=== PATIENT | male | born 1960 | race Caucasian/White ===

== ENCOUNTER → 2020-12-15 10:23 | Outpatient (CLI) | payer OTHER, SELFPAY | PROVIDERS: PCP Family Medicine; Visit Provider Nurse Practitioner | DX: Z20.822 Contact with and (suspected) exposure to COVID-19 (principal) | CPT/HCPCS: C9803; U0003; U0005 ==

== ENCOUNTER → 2021-01-23 09:03 | Outpatient (CLI) | payer OTHER, SELFPAY | PROVIDERS: Visit Provider Student in an Organized Health Care Education/Training Program | DX: Z01.818 Encounter for other preprocedural examination (principal); Z11.52 Encounter for screening for COVID-19 | CPT/HCPCS: C9803; U0003; U0005 ==

== ENCOUNTER → 2021-02-18 10:44 | Outpatient (CLI) | payer OTHER, SELFPAY | PROVIDERS: Visit Provider Family Medicine | DX: U07.1 COVID-19 (principal) | CPT/HCPCS: C9803; U0003; U0005 ==

== ENCOUNTER 2021-05-05 10:00 | Outpatient (RCR) | payer OTHER, SELFPAY | END 2021-05-05 10:05 | disposition home or self-care (01) | LOC: PT 10:00 | PROVIDERS: PCP Family Medicine; Visit Provider Student in an Organized Health Care Education/Training Program | DX: R60.0 Localized edema (principal); Z98.890 Other specified postprocedural states | CPT/HCPCS: 97110; 97140; 97162; 97760 ==

== ENCOUNTER 2022-10-02 10:32 | Observation (INO) | payer BC, SELFPAY ==
[2022-10-02] VITALS (14 sets, daily range): BP systolic 109–137; BP diastolic 61–80; PULSE 111–126; RESP 16–19; TEMP 36.7–37.7; O2SAT 96–99; BMI 39.4
--- NOTE | 2022-10-02 10:52 | CT_ITS ---
PROCEDURE INFORMATION: Exam: CT Abdomen And Pelvis Without Contrast Exam date and time: 10/02/2022 11:06 AM Age: 62 years old Clinical indication: Abdominal pain; Flank; Right; Additional info: Flank pain, recent untreated UTI, h/o renal cancer TECHNIQUE: Imaging protocol: Computed tomography of the abdomen and pelvis without contrast. Radiation optimization: All CT scans at this facility use at least one of these dose optimization techniques: automated exposure control; mA and/or kV adjustment per patient size (includes targeted exams where dose is matched to clinical indication); or iterative reconstruction. REPORTING DATA: Count of CT and Cardiac NM exams in prior 12 months: This patient has received 0 known CTs and 0 known cardiac nuclear medicine studies in the 12 months prior to the current study. COMPARISON: No relevant prior studies available. FINDINGS: Liver: Normal. No mass. Gallbladder and bile ducts: Normal. No calcified stones. No ductal dilation. Pancreas: Normal. No ductal dilation. Spleen: Normal. No splenomegaly. Adrenal glands: Normal. No mass. Kidneys and ureters: Previous left nephrectomy. Nonobstructing right renal calculus measures 8 mm. Right peripelvic cyst measures 3.3 x 3.1 cm. No hydronephrosis. Stomach and bowel: Unremarkable. No obstruction. No mucosal thickening. Appendix: No evidence of appendicitis. Intraperitoneal space: Unremarkable. No free air. No significant fluid collection. Vasculature: Unremarkable. No abdominal aortic aneurysm. Lymph nodes: Increased number of unenlarged lymph nodes within the right pelvis, and along the right iliac and retroperitoneal chains. Likely reactive. Urinary bladder: Bladder wall thickening suspected. Likely cystitis, clinical correlation recommended. Reproductive: Inflammatory changes adjacent to the bladder, extending inferiorly to the seminal vesicles and prostate gland. Bones/joints: Unremarkable. No acute fracture. Soft tissues: Unremarkable. IMPRESSION: 1. Inflammatory changes adjacent to the bladder, extending inferiorly to the seminal vesicles and prostate gland. Bladder wall thickening suspected. Likely cystitis, clinical correlation recommended. 2. Increased number of unenlarged lymph nodes within the right pelvis, and along the right iliac and retroperitoneal chains. Likely reactive. COMMENTS: Consistent with the [employer]'s Incidental Findings Committee white paper (J Am Rigo Radiol 2018): Any incidental renal lesion less than 1 cm or classified as too small to characterize, or any incidental cystic renal lesion characterized as simple-appearing, is likely benign. No follow-up imaging is recommended for these lesions per consensus recommendations based on imaging criteria.
--- NOTE | 2022-10-02 11:00 | PC.NURSE ---
bladder scan performed, 16 mL's noted in bladder. notified
[2022-10-02 11:09] LABS: Basophils # 0.1 K/mm3 (0-0.2); Basophils % 0.3 % (0.1-2.0); Eosinophils # 0.1 K/mm3 (0.0-0.4); Eosinophils % 0.6 % (0.1-12.0); Hematocrit 52.1 % (42.0-52.0); Hemoglobin 16.7 g/dL (14.1-18.0); Lymphocytes # 3.5 K/mm3 (0.7-4.5); Lymphocytes % 19.3 % (10-50); Mean Corpuscular Hemoglobin 30.7 pg (27.0-31.2); Mean Corpuscular Volume 95.8 fl (80-94); Mean Platelet Volume 7.9 fl (7.4-10.4); Monocytes # 1.6 K/mm3 (0.1-1.0); Neutrophils # 12.8 K/mm3 (1.8-7.8); Neutrophils % 70.7 % (37.0-80.0); Platelet Count 210 K/mm3 (142-424); Red Blood Count 5.44 M/mm3 (4.60-6.20); Red Cell Distribution Width 13.1 % (11.5-17.5); White Blood Count 18.1 K/mm3 (4.8-10.8)
[2022-10-02 11:16] LABS: MANUAL DIFFERENTIAL MANUAL DIFFERENTIAL (MANUAL DIFF)
[2022-10-02 11:26] LABS: Chloride 99 mmol/L (98-107); Sodium 136 mmol/L (136-145)
[2022-10-02 11:28] LABS: Blood Urea Nitrogen 14 mg/dl (9-20); Creatinine Clearance Estimated 69 mL/min (50-200); Estimated Glomerular Filt Rate 36 ml/min (>60); GFR (African American) 43 ML/MIN (>60)
[2022-10-02 11:29] LABS: Alanine Aminotransferase 28 U/L (12-78); Albumin/Globulin Ratio 1.1 (1.1-1.8); Alkaline Phosphatase 116 U/L (38-126); Aspartate Amino Transferase 30 U/L (17-59); Bilirubin,Total 1.1 mg/dl (0.2-1.3); Calcium 9.1 mg/dl (8.4-10.2); Carbon Dioxide 23 mmol/L (22.0-30.0); Globulin 3.5 g/dL (1.3-3.2); Glucose 119 mg/dl (74-100); Total Protein,Serum 7.5 g/dl (6.3-8.2)
--- NOTE | 2022-10-02 11:35 | ECG_ITS ---
APPROVED REPORT Exam: Resting ECG HR:117 bpm ECG Measurements Heart Rate 117 AXES MA 163 P 33 QRSd 102 QRS -1 QT 312 T 49 QTc 382 Conclusion SINUS TACHYCARDIA ABNORMAL RHYTHM ECG UNCONFIRMED REPORT Electronically signed by : Ta Moreno MD 10/02/2022 21:00:50
[2022-10-02 11:36] LABS: Microscopic, Urine URINE MICROSCOPIC (MICROSCOPIC)
--- NOTE | 2022-10-02 11:41 | HMH.EDGENADL ---
Discharge Plan Disposition Patient Disposition: Admitted Condition: Good Clinical Impressions Clinical Impression: Sepsis secondary to UTI, GENA (acute kidney injury) Discharge ED Provider: Ava Villeda General Adult HPI General Chief complaint: Urogenital-Male Stated complaint: unable to use the restroom, abd pain Time Seen by Provider: 10/02/22 10:38 Mode of Arrival: Ambulatory Source of Information: Patient Limitations: No Limitations Description of Symptoms (Recalled from ER Triage Doc. by RN): 52 yo M presents to ED with c/o trouble urinating. pt reports nov 2019 pt had kidney cancer and left kidney removed. pts reports diagnosed with kidney infection on tuesday, but was unsure of taking abx prescribed, cipro, due to effects it can have on kidneys. pt reports being able to pee, but feels like he is not emptying his bladder. History of Present Illness HPI narrative: This patient is a 52-year-old male with a history of kidney cancer status post left nephrectomy presenting to the emergency department for evaluation with concern for generalized weakness, fatigue, and trouble urinating. Of note, patient is currently on immunotherapy for his history of kidney cancer. He is followed at [facility]. Patient reports that he started feeling ill approximately 1 week ago. On Tuesday of last week, he was evaluated and diagnosed with a kidney infection. He was prescribed ciprofloxacin, which he states he took 3 doses of on last Tuesday and . His was reading online that it could cause headache and kidney issues, so they decided to stop administering ciprofloxacin. Patient gradually began to feel worse, and last night he had chills, nausea, fatigue, body aches, and headache. Given this, they gave him a dose of Cipro last night. Today, he reports that he has had a lot of trouble urinating. He states that he feels like he has to pee but feels like his bladder is not emptying. Given this, he came to the emergency department for evaluation. He denies any fevers, chest pain, shortness of breath, or other concerns. Related Data Allergies Allergy/AdvReac Type Severity Reaction Status Date / Time No Known Allergies Allergy Verified 10/02/22 11:36 [facility] Disclaimer: The information contained in this section may have been updated after the patient was seen, as this information can be updated by other users. Social History Smoking Status: Never smoker alcohol intake: never current occupational status: retired Travel in the last 8 weeks: None ROS Obtained: Yes All systems reviewed & no additional complaints except as documented Physical Exam General General appearance: alert and in no apparent distress Comment: Tired appearing Head Head exam: atraumatic, normocephalic and other (Malar rash to the face) Eye Eye exam: Present normal appearance, PERRL and EOMI ENT ENT exam: Present normal exam, normal oropharynx, mucous membranes dry and normal external ear exam Neck Neck exam: Present normal inspection, full ROM and trachea midline; Absent tenderness Chest Chest inspection: Present normal inspection and symmetric chest wall rise; Absent tenderness Respiratory Respiratory exam: Present normal lung sounds bilaterally; Absent respiratory distress, wheezes, stridor or accessory muscle use Cardiovascular Cardiovascular exam: Present normal rhythm and tachycardia Abdominal Exam Abdominal exam: Present soft and tenderness (Suprapubic); Absent distention, guarding, rebound or rigidity Extremities Exam Extremities exam: Present normal inspection, full ROM and normal capillary refill; Absent tenderness or edema Back Exam Back exam: Present normal inspection, full ROM and CVA tenderness (R); Absent tenderness Neurological Exam Neurological exam: Present alert, oriented X3, CN II-XII intact and normal gait; Absent motor sensory deficit Psychiatric Psychiatric exam: Present normal affect and normal mood
[2022-10-02 11:42] LABS: Eosinophils % 1 % (0-3); Lymphocytes % 21 % (10-50); Monocytes % 9 % (2-9); Neutrophils % 69 % (42-76); Total Cells Counted 100
[2022-10-02 11:43] LABS: Platelet Estimate Normal; RBC Morphology Normal
[2022-10-02 11:51] LABS: Appearance,Urine CLEAR (Clear); Blood, Urine 2+ (Negative); Color,Urine YELLOW (Yellow); Glucose,Urine (UA) Negative (Negative); Ketones,Urine 3+ (Negative); Leukocyte Esterase,Urine Negative (Negative); Nitrate,Urine Negative (Negative); PH,Urine 5.5 (5.0-8.5); Protein,Urine 2+ (Negative); Specific Gravity, Urine >= 1.030 (1.005-1.030); Urobilinogen,Urine 0.2 EU/dl (0.2)
[2022-10-02 11:52] LABS: Bilirubin,Urine 2+ (Negative)
--- NOTE | 2022-10-02 12:00 | PC.NURSE ---
rounded on pt nothing needed at this time, at bs
--- NOTE | 2022-10-02 12:00 | XR_ITS ---
PROCEDURE INFORMATION: Exam: XR Chest Exam date and time: 10/02/2022 12:09 PM Age: 62 years old Clinical indication: Pain; Chest pressure; Additional info: Weak, sirs + TECHNIQUE: Imaging protocol: Radiologic exam of the chest. Views: 1 view. COMPARISON: CT ABDOMEN PELVIS WO CON 10/02/2022 11:06 AM FINDINGS: Lungs: Unremarkable. No consolidation. Pleural spaces: Unremarkable. No pleural effusion. No pneumothorax. Heart/Mediastinum: Unremarkable. No cardiomegaly. Bones/joints: Unremarkable. Left axillary clips. IMPRESSION: No acute findings.
[2022-10-02 12:01] LABS: T4 (Thyroxine) 10.2 ug/dl (5.53-11.0)
[2022-10-02 12:46] LABS: Lactic Acid 1.3 mmol/L (0.7-2.1)
[2022-10-02 12:56] LABS: Coronavirus 19, PCR Not Detected (NotDetected); Influenza A, PCR Not Detected (NotDetected); Influenza B, PCR Not Detected (NotDetected)
--- NOTE | 2022-10-02 13:18 | EXP.HP ---
History of Present Illness *Admission Date: 10/02/22 *Reason for visit:: UTI *History of present illness: Mr. Lee is a 62 year old male with a past medical history of L renal cancer s/p total left nephrectomy and left adrenalectomy in 2019 s/p immunotherapy, adrenal insufficiency, hypothyroidism, hypogonadism and vitamin d deficiency. He presents with a week of urinary urgency and generalized weakness. He was prescribed ciprofloxacin for a UTI and took two doses on 09/29 but stopped because he felt it was making him feel worse and giving him a headache. His symptoms worsened so he took another dose last night to no avail. He has had very poor appetite and poor oral intake. He had only one other ocurrence of a UTI and it was in May of this year. He denies fever, chills, dysuria, hematuria and back pain. He denies chest pain, shortness of breath, diarrhea and abdominal pain. [facility] Disclaimer: The information contained in this section may have been updated after the patient was seen, as this information can be updated by other users. Medical History (Updated 10/02/22 @ 19:16 by Malick Frost MD) Immunotherapy Kidney malignancy Surgical History (Updated 10/02/22 @ 15:09 by Maya Navarro RN) History of kidney removal Social History (Updated 10/02/22 @ 15:13 by Maya Navarro RN) Smoking Status: Never smoker alcohol intake: never current occupational status: employed and retired Travel in the last 8 weeks: None Review of Systems Review of Systems Review of systems:: pertinent systems reviewed and negative unless documented below Constitutional Constitutional: Reports body ache(s) and Reports weakness *Genitourinary Genitourinary: Reports urinary urgency *Neurologic Neurologic: Reports weakness Meds Home Medications and Allergies Home Medications Medication Instructions Recorded Confirmed Type ergocalciferol (vitamin D2) 1,250 1,250 mcg PO WEEKLY Supplement 10/02/22 10/02/22 History mcg (50,000 unit) capsule (Vitamin D2) hydrocortisone 10 mg tablet 10 mg PO BID adrenal insuffciency 10/02/22 10/02/22 History hydroxyzine HCl 25 mg tablet 25 mg PO HS anxiey 10/02/22 10/02/22 History levothyroxine 100 mcg tablet 100 mcg PO DAILY thyroid 10/02/22 10/02/22 History testosterone cypionate 200 mg/mL 200 mg IM BOLUS Supplement 10/02/22 10/02/22 History intramuscular oil New Prescriptions to Start Prescriptions: Allergies Allergy/AdvReac Type Severity Reaction Status Date / Time No Known Allergies Allergy Verified 10/02/22 11:36 Exam Data for Last 24 hours Vital signs and Labs for Last 24 Hours: Temp Pulse Resp BP Pulse Ox O2 Del Method 99.3 F 115 H 16 109/61 L 99 Room Air 10/02/22 10:49 10/02/22 13:00 10/02/22 10:49 10/02/22 13:00 10/02/22 13:00 10/02/22 13:00 Laboratory Results - last 24 hr 10/02/22 10:58: WBC 18.1 H, RBC 5.44, Hgb 16.7, Hct 52.1 H, MCV 95.8 H, MCH 30.7, MCHC 32.0, RDW 13.1, Plt Count 210, MPV 7.9, Neut % (Auto) 70.7, Lymph % (Auto) 19.3, [place] % (Auto) 9.0, Eos % (Auto) 0.6, Baso % (Auto) 0.3, Neut # (Auto) 12.8 H, Lymph # (Auto) 3.5, [place] # (Auto) 1.6 H, Eos # (Auto) 0.1, Baso # (Auto) 0.1, Total Counted 100, Neutrophils % (Manual) 69, Lymphocytes % (Manual) 21, Monocytes % (Manual) 9, Eosinophils % (Manual) 1, Platelet Estimate Normal, RBC Morphology Normal, Sodium 136, Potassium 4.0, Chloride 99, Carbon Dioxide 23, Anion Gap 18.0 H, BUN 14, Creatinine 1.90 H, Estimated Creat Clear 69, Estimated GFR 36 L, Est GFR ( Amer) 43 L, Glucose 119 H, Calcium 9.1, Total Bilirubin 1.1, AST 30, ALT 28, Alkaline Phosphatase 116, Total Protein 7.5, Albumin 4.0, Globulin 3.5 H, Albumin/Globulin Ratio 1.1, TSH 2.10, Thyroxine (T4) 10.2 10/02/22 11:32: Urine Color Yellow, Urine Appearance Clear, Urine pH 5.5, Ur Specific [place] >= 1.030, Urine Protein 2+, Urine Glucose (UA) Negative, Urine Ketones 3+, Urine Blood 2+, Urine Nitrate Negative, Urine Bilirubin 2+ A,
--- NOTE | 2022-10-02 14:10 | PC.NURSE ---
rounded on pt nothing needed at this time,let him know we were waiting on second floor to come get him for his room, at bs
--- NOTE | 2022-10-02 14:48 | PC.NURSE ---
pt arrived to the floor at 1430 by wheelchair
[2022-10-03] VITALS: BP 105/64; BP 137/77; PULSE 85; PULSE 93; RESP 16; TEMP 37; TEMP 37.2; O2SAT 94; O2SAT 96
[2022-10-03 04:00] VITALS: BP 125/71; PULSE 89; TEMP 37; O2SAT 98; BMI 39.4
[2022-10-03 08:00] VITALS: BP 127/71; PULSE 94; RESP 16; TEMP 36.8; O2SAT 94
--- NOTE | 2022-10-03 08:19 | EXP.PN ---
Subjective *Date: 10/03/22 *Time: 23:22 Interval history: No acute events overnight. He feels better overall. He's eating well. He has been anxious. Exam Data for Last 24 hours Vital signs and Labs for Last 24 Hours: Temp Pulse Resp BP Pulse Ox O2 Del Method 98.6 F 89 16 125/71 98 Room Air 10/03/22 04:00 10/03/22 04:00 10/03/22 00:00 10/03/22 04:00 10/03/22 04:00 10/03/22 06:39 Laboratory Results - last 24 hr 10/02/22 10:58: WBC 18.1 H, RBC 5.44, Hgb 16.7, Hct 52.1 H, MCV 95.8 H, MCH 30.7, MCHC 32.0, RDW 13.1, Plt Count 210, MPV 7.9, Neut % (Auto) 70.7, Lymph % (Auto) 19.3, [place] % (Auto) 9.0, Eos % (Auto) 0.6, Baso % (Auto) 0.3, Neut # (Auto) 12.8 H, Lymph # (Auto) 3.5, [place] # (Auto) 1.6 H, Eos # (Auto) 0.1, Baso # (Auto) 0.1, Total Counted 100, Neutrophils % (Manual) 69, Lymphocytes % (Manual) 21, Monocytes % (Manual) 9, Eosinophils % (Manual) 1, Platelet Estimate Normal, RBC Morphology Normal, Sodium 136, Potassium 4.0, Chloride 99, Carbon Dioxide 23, Anion Gap 18.0 H, BUN 14, Creatinine 1.90 H, Estimated Creat Clear 69, Estimated GFR 36 L, Est GFR ( Amer) 43 L, Glucose 119 H, Calcium 9.1, Total Bilirubin 1.1, AST 30, ALT 28, Alkaline Phosphatase 116, Total Protein 7.5, Albumin 4.0, Globulin 3.5 H, Albumin/Globulin Ratio 1.1, TSH 2.10, Thyroxine (T4) 10.2 10/02/22 11:32: Urine Color Yellow, Urine Appearance Clear, Urine pH 5.5, Ur Specific [place] >= 1.030, Urine Protein 2+, Urine Glucose (UA) Negative, Urine Ketones 3+, Urine Blood 2+, Urine Nitrate Negative, Urine Bilirubin 2+ A, Urine Urobilinogen 0.2, Ur Leukocyte Esterase Negative, Urine RBC 10-20, Urine WBC 3-5, Ur Squamous Epith Cells 5-10, Urine Bacteria None 10/02/22 11:53: Lactate 1.3 10/02/22 12:43: SARS-CoV-2 (PCR) Not detected, Influenza A Untype (PCR) Not detected, Influenza Type B (PCR) Not detected I & O for Last 24 hours: Intake & Output 09/30/22 10/01/22 10/02/22 10/03/22 23:59 23:59 23:59 23:59 Intake Total 1000 / 1000 Output Total 100 / 300 1000 / 1000 Balance -100 / -300 0 / 0 Weight 124.851 kg 124.783 kg Constitutional Constitutional: no acute distress *Routine HEENT Exam Head: Present normocephalic Eye: Present EOMI and PERRL ENT: Present mucous membranes moist *Routine Neck Exam Neck: Present supple; Absent lymphadenopathy *Routine Respiratory Exam Respiratory: Present CTA bilaterally *Routine Cardiovascular Exam Cardiovascular: Present RRR *Routine Abdominal Exam Abdominal: Present soft and normoactive bowel sounds; Absent tenderness *Routine Extremities Exam Extremities: Absent cyanosis, clubbing or edema *Routine Skin Exam Skin: Present warm; Absent rash *Routine Neurological Exam Neurological: Present alert and oriented X3 Assessment and Plan *Assessment and plan (1) UTI (urinary tract infection): Status: Acute Category: Medical Code(s): N39.0 - Urinary tract infection, site not specified (2) GENA (acute kidney injury): Status: Acute Category: Medical Code(s): N17.9 - Acute kidney failure, unspecified (3) Adrenal insufficiency: Status: Acute Category: Medical Code(s): E27.40 - Unspecified adrenocortical insufficiency Plan #UTI, failed outpatient antibiotics #gena #adrenal insufficiency The patient meets SIRS criteria with 18.1K wbcs and initial HR of 122. U/A is with 10-20 WBCs, urine and blood cultures were collected and Abd/pel ct wo reveals infllamatory changes adjacent to the bladder, extending inferiorly to the seminal vesicles and prostate gland. Bladder wall thickening suspected. Likely cystitis. In the ED the patient was given LR bolus x 2 liters and was Rocephin IV 1g. Subsequently he receiving NS @ 100mL/hr x 1 L. Kidney function is improving and leukocytosis is resolving. Continue Rocephin. F/u on cultures continue the patient's home medication, hydrocortisone Regular diet DVT ppx: lovenox Full code anticipate d/c to [facility]
[2022-10-03 08:57] LABS: Basophils % 0.1 % (0.1-2.0); Eosinophils # 0.2 K/mm3 (0.0-0.4); Eosinophils % 1.5 % (0.1-12.0); Hematocrit 43.1 % (42.0-52.0); Lymphocytes # 2.4 K/mm3 (0.7-4.5); Lymphocytes % 19.1 % (10-50); Mean Corpuscular HGB Conc 33.4 g/dL (31.8-35.4); Mean Corpuscular Hemoglobin 31.9 pg (27.0-31.2); Mean Corpuscular Volume 95.6 fl (80-94); Mean Platelet Volume 8.1 fl (7.4-10.4); Monocytes # 1.2 K/mm3 (0.1-1.0); Monocytes % 9.1 % (1.7-9.3); Neutrophils # 8.9 K/mm3 (1.8-7.8); Neutrophils % 70.1 % (37.0-80.0); Platelet Count 185 K/mm3 (142-424); Red Cell Distribution Width 12.9 % (11.5-17.5); White Blood Count 12.7 K/mm3 (4.8-10.8)
[2022-10-03 09:59] LABS: Hemoglobin 14.4 g/dL (14.1-18.0)
[2022-10-03 10:57] LABS: Chloride 102 mmol/L (98-107); Sodium 131 mmol/L (136-145)
[2022-10-03 10:58] LABS: Potassium 4.3 mmoL/L (3.5-5.1)
[2022-10-03 11:00] LABS: Alanine Aminotransferase 24 U/L (12-78); Alkaline Phosphatase 92 U/L (38-126); Anion Gap 14.3 mEq/L (5-15); Aspartate Amino Transferase 32 U/L (17-59); Bilirubin,Total 0.7 mg/dl (0.2-1.3); Blood Urea Nitrogen 12 mg/dl (9-20); Carbon Dioxide 19 mmol/L (22.0-30.0); Creatinine Clearance Estimated 101 mL/min (50-200); Estimated Glomerular Filt Rate 56 ml/min (>60); GFR (African American) 67 ML/MIN (>60)
[2022-10-03 11:01] LABS: Albumin Level 2.8 g/dl (3.5-5.0); Albumin/Globulin Ratio 1.1 (1.1-1.8); Calcium 8.2 mg/dl (8.4-10.2); Globulin 2.6 g/dL (1.3-3.2); Glucose 126 mg/dl (74-100); Total Protein,Serum 5.4 g/dl (6.3-8.2)
[2022-10-03 11:55] LABS: Magnesium 1.7 mg/dl (1.6-2.3)
[2022-10-03 12:00] VITALS: BP 117/84; PULSE 93; RESP 18; TEMP 36.7; O2SAT 97
[2022-10-03 12:47] LABS: Thyroid Stimulating Hormone 1.21 uIU/mL (0.465-4.68)
[2022-10-03 16:00] VITALS: BP 155/81; PULSE 93; RESP 19; TEMP 36.8; O2SAT 95
[2022-10-03 20:00] VITALS: BP 117/67; PULSE 94; RESP 16; TEMP 37.2; O2SAT 94
[2022-10-04 04:00] VITALS: BP 116/68; PULSE 82; RESP 16; TEMP 36.7; O2SAT 99; BMI 39.4
[2022-10-04 06:44] LABS: Basophils % 0.3 % (0.1-2.0); Chloride 103 mmol/L (98-107); Eosinophils # 0.3 K/mm3 (0.0-0.4); Eosinophils % 3.5 % (0.1-12.0); Hematocrit 43.1 % (42.0-52.0); Hemoglobin 14.2 g/dL (14.1-18.0); Lymphocytes # 2.4 K/mm3 (0.7-4.5); Lymphocytes % 24.2 % (10-50); Mean Corpuscular Hemoglobin 31.4 pg (27.0-31.2); Mean Corpuscular Volume 95.1 fl (80-94); Mean Platelet Volume 8.2 fl (7.4-10.4); Monocytes # 0.8 K/mm3 (0.1-1.0); Monocytes % 8.4 % (1.7-9.3); Neutrophils # 6.2 K/mm3 (1.8-7.8); Neutrophils % 63.6 % (37.0-80.0); Platelet Count 184 K/mm3 (142-424); Potassium 3.9 mmoL/L (3.5-5.1); Red Blood Count 4.53 M/mm3 (4.60-6.20); Red Cell Distribution Width 12.9 % (11.5-17.5); Sodium 133 mmol/L (136-145); White Blood Count 9.7 K/mm3 (4.8-10.8)
[2022-10-04 06:47] LABS: Anion Gap 9.9 mEq/L (5-15); Blood Urea Nitrogen 12 mg/dl (9-20); Calcium 8.1 mg/dl (8.4-10.2); Carbon Dioxide 24 mmol/L (22.0-30.0); Creatinine Clearance Estimated 101 mL/min (50-200); Estimated Glomerular Filt Rate 56 ml/min (>60); GFR (African American) 67 ML/MIN (>60); Glucose 99 mg/dl (74-100)
[2022-10-04 08:00] VITALS: BP 110/53; PULSE 90; RESP 18; TEMP 37.2; O2SAT 96
--- NOTE | 2022-10-04 08:24 | EXP.DC.SUM ---
General Admission date:: 10/02/22 Discharge date: 10/04/22 HPI HPI HPI: Mr. Lee is a 62 year old male with a past medical history of L renal cancer s/p total left nephrectomy and left adrenalectomy in 2019 s/p immunotherapy, adrenal insufficiency, hypothyroidism, hypogonadism and vitamin d deficiency. He presents with a week of urinary urgency and generalized weakness. He was prescribed ciprofloxacin for a UTI and took two doses on 09/29 but stopped because he felt it was making him feel worse and giving him a headache. His symptoms worsened so he took another dose last night to no avail. He has had very poor appetite and poor oral intake. He had only one other ocurrence of a UTI and it was in May of this year. He denies fever, chills, dysuria, hematuria and back pain. He denies chest pain, shortness of breath, diarrhea and abdominal pain. Hospital Course Hospital Course Hospital Course: The patient meets SIRS criteria with 18.1K wbcs and initial HR of 122. U/A is with 10-20 WBCs, urine and blood cultures were collected and Abd/pel ct wo reveals infllamatory changes adjacent to the bladder, extending inferiorly to the seminal vesicles and prostate gland. Bladder wall thickening suspected. Likely cystitis. In the ED the patient was given LR bolus x 2 liters and was Rocephin IV 1g. Subsequently he received NS @ 100mL/hr x 1 L. By the day of discharge the patient had been afebrile for over 24 hours and his dysuria had greatly subsided. Urine culture had no growth. He was discharged on 7 days of cefdinir and will need to follow up with his primary care provider in 1 week. Exam Data for Last 24 hours Vital signs and Labs for Last 24 Hours: Temp Pulse Resp BP Pulse Ox O2 Del Method 98.1 F 82 16 116/68 99 Room Air 10/04/22 04:00 10/04/22 04:00 10/04/22 04:00 10/04/22 04:00 10/04/22 04:00 10/04/22 06:32 Laboratory Results - last 24 hr 10/03/22 08:05: WBC 12.7 H D, RBC 4.50 L, Hgb 14.4 D, Hct 43.1, MCV 95.6 H, MCH 31.9 H, MCHC 33.4, RDW 12.9, Plt Count 185, MPV 8.1, Neut % (Auto) 70.1, Lymph % (Auto) 19.1, [place] % (Auto) 9.1, Eos % (Auto) 1.5, Baso % (Auto) 0.1, Neut # (Auto) 8.9 H, Lymph # (Auto) 2.4, [place] # (Auto) 1.2 H, Eos # (Auto) 0.2, Baso # (Auto) 0.0, Sodium 131 L, Potassium 4.3, Chloride 102, Carbon Dioxide 19 L, Anion Gap 14.3, BUN 12, Creatinine 1.30 H D, Estimated Creat Clear 101, Estimated GFR 56 L, Est GFR ( Amer) 67 D, Glucose 126 H, Calcium 8.2 L, Magnesium 1.7, Total Bilirubin 0.7, AST 32, ALT 24, Alkaline Phosphatase 92, Total Protein 5.4 L D, Albumin 2.8 L D, Globulin 2.6, Albumin/Globulin Ratio 1.1, TSH 1.21 D 10/04/22 06:04: WBC 9.7, RBC 4.53 L, Hgb 14.2, Hct 43.1, MCV 95.1 H, MCH 31.4 H, MCHC 33.0, RDW 12.9, Plt Count 184, MPV 8.2, Neut % (Auto) 63.6, Lymph % (Auto) 24.2, [place] % (Auto) 8.4, Eos % (Auto) 3.5, Baso % (Auto) 0.3, Neut # (Auto) 6.2, Lymph # (Auto) 2.4, [place] # (Auto) 0.8, Eos # (Auto) 0.3, Baso # (Auto) 0.0, Sodium 133 L, Potassium 3.9, Chloride 103, Carbon Dioxide 24, Anion Gap 9.9, BUN 12, Creatinine 1.30 H, Estimated Creat Clear 101, Estimated GFR 56 L, Est GFR ( Amer) 67, Glucose 99 D, Calcium 8.1 L I & O for Last 24 hours: Intake & Output 10/01/22 10/02/22 10/03/22 10/04/22 23:59 23:59 23:59 23:59 Intake Total 2270 / 2510 240 / 240 Output Total 100 / 300 1600 / 1800 700 / 700 Balance -100 / -300 670 / 710 -460 / -460 Weight 124.851 kg 124.783 kg 124.783 kg Microbiology Reports for the Last 24 Hours: Microbiology 10/02/22 11:32 Urine,Clean Catch Urine Culture - Preliminary NO GROWTH AFTER 24 HOURS Constitutional Constitutional: no acute distress *Routine HEENT Exam Head: Present normocephalic Eye: Present EOMI and PERRL ENT: Present mucous membranes moist *Routine Neck Exam Neck: Present supple; Absent lymphadenopathy *Routine Respiratory Exam Respiratory: Present CTA bilaterally *Routine Cardiovascular Exam Ca
--- NOTE | 2022-10-04 12:03 | CARE MANAGER ---
Current Medications Acetaminophen (Acetaminophen 325mg Tab) 650 mg PO Q6HP PRN PRN Reason: Fever or Mild Pain (1-3) Stop: 11/02/22 19:22 Last Admin: 10/04/22 06:08 Dose: 650 mg Alprazolam (Alprazolam 0.25mg Tablet) 0.25 mg PO TIDP PRN PRN Reason: Anxiety Stop: 11/02/22 13:47 Last Admin: 10/03/22 13:59 Dose: 0.25 mg Ergocalciferol (Ergocalciferol 50,000 Units (1.25mg) Capsule) 50,000 unit PO WEEKLY AMY Stop: 11/02/22 08:59 Last Admin: 10/03/22 08:40 Dose: Not Given Heparin Sodium (Porcine) (Heparin Sodium 5,000 Unit/Ml Vial) 5,000 unit SQ BID AMY Stop: 11/02/22 08:59 Last Admin: 10/04/22 08:43 Dose: 5,000 unit Hydroxyzine Pamoate (Hydroxyzine Pamoate 25mg Capsule) 25 mg PO HS AMY Stop: 11/02/22 20:59 Last Admin: 10/03/22 20:00 Dose: 25 mg Levothyroxine Sodium (Levothyroxine 100mcg (0.1mg) Tab) 100 mcg PO DAILYDM AMY Stop: 11/01/22 18:59 Last Admin: 10/04/22 06:03 Dose: 100 mcg Pat Own Med Hydrocortisone 10 Mg 1.5 each PO 0800 AMY Stop: 11/02/22 09:29 Last Admin: 10/04/22 08:43 Dose: 1.5 each Pat Own Med Hydrocortisone 10 Mg 1 each PO 1300 AMY Stop: 11/02/22 12:59 Last Admin: 10/03/22 13:47 Dose: Not Given Sodium Chloride (Sodium Chloride 0.9% 10ml Flush Syringe) 10 ml IV NEEDED PRN PRN Reason: Maintain IV Site Stop: 11/03/22 06:05 Laboratory Results - last 72 hr 10/02/22 10/02/22 10/02/22 10:58 11:32 11:53 WBC 18.1 H RBC 5.44 Hgb 16.7 Hct 52.1 H MCV 95.8 H MCH 30.7 MCHC 32.0 RDW 13.1 Plt Count 210 MPV 7.9 Neut % (Auto) 70.7 Lymph % (Auto) 19.3 [place] % (Auto) 9.0 Eos % (Auto) 0.6 Baso % (Auto) 0.3 Neut # (Auto) 12.8 H Lymph # (Auto) 3.5 [place] # (Auto) 1.6 H Eos # (Auto) 0.1 Baso # (Auto) 0.1 Total Counted 100 Neutrophils % (Manual) 69 Lymphocytes % (Manual) 21 Monocytes % (Manual) 9 Eosinophils % (Manual) 1 Platelet Estimate Normal RBC Morphology Normal Sodium 136 Potassium 4.0 Chloride 99 Carbon Dioxide 23 Anion Gap 18.0 H BUN 14 Creatinine 1.90 H Estimated Creat Clear 69 Estimated GFR 36 L Est GFR ( Amer) 43 L Glucose 119 H Lactate 1.3 Calcium 9.1 Magnesium Total Bilirubin 1.1 AST 30 ALT 28 Alkaline Phosphatase 116 Total Protein 7.5 Albumin 4.0 Globulin 3.5 H Albumin/Globulin Ratio 1.1 TSH 2.10 Thyroxine (T4) 10.2 Urine Color Yellow Urine Appearance Clear Urine pH 5.5 Ur Specific [place] >= 1.030 Urine Protein 2+ Urine Glucose (UA) Negative Urine Ketones 3+ Urine Blood 2+ Urine Nitrate Negative Urine Bilirubin 2+ A Urine Urobilinogen 0.2 Ur Leukocyte Esterase Negative Urine RBC 10-20 Urine WBC 3-5 Ur Squamous Epith Cells 5-10 Urine Bacteria None SARS-CoV-2 (PCR) Influenza A Untype (PCR) Influenza Type B (PCR) 10/02/22 10/03/22 10/04/22 12:43 08:05 06:04 WBC 12.7 H D 9.7 RBC 4.50 L 4.53 L Hgb 14.4 D 14.2 Hct 43.1 43.1 MCV 95.6 H 95.1 H MCH 31.9 H 31.4 H MCHC 33.4 33.0 RDW 12.9 12.9 Plt Count 185 184 MPV 8.1 8.2 Neut % (Auto) 70.1 63.6 Lymph % (Auto) 19.1 24.2 [place] % (Auto) 9.1 8.4 Eos % (Auto) 1.5 3.5 Baso % (Auto) 0.1 0.3 Neut # (Auto) 8.9 H 6.2 Lymph # (Auto) 2.4 2.4 [place] # (Auto) 1.2 H 0.8 Eos # (Auto) 0.2 0.3 Baso # (Auto) 0.0 0.0 Total Counted Neutrophils % (Manual) Lymphocytes % (Manual) Monocytes % (Manual) Eosinophils % (Manual) Platelet Estimate RBC Morphology Sodium 131 L 133 L Potassium 4.3 3.9 Chloride 102 103 Carbon Dioxide 19 L 24 Anion Gap 14.3 9.9 BUN 12 12 Creatinine 1.30 H D 1.30 H Estimated Creat Clear 101 101 Estimated GFR 56 L 56 L Est GFR ( Amer) 67 D 67 Glucose 126 H 99 D Lactate Calcium 8.2 L 8.1 L Magnesium 1.7 Total Biliru
--- NOTE | 2022-10-05 14:09 | CARE MANAGER ---
Contacted patient related to hospital discharge. Patient states he picked up his antibiotic and is aware of follow up appointment. He was concerned due to issues with urination last night, but they are better today. Denies any questions or concerns. PATTI Kellogg
== END 2022-10-04 12:21 | disposition home or self-care (01) ==
LOC: ER 13:19 → 2ND 14:33
PROVIDERS: Admitting Provider Internal Medicine; Emergency Provider Emergency Medicine; PCP Family Medicine; Visit Provider Internal Medicine
DX: N39.0 Urinary tract infection, site not specified (principal); N17.9 Acute kidney failure, unspecified; E27.40 Unspecified adrenocortical insufficiency; Z79.899 Other long term (current) drug therapy; E03.9 Hypothyroidism, unspecified; Z90.5 Acquired absence of kidney; Z85.53 Personal history of malignant neoplasm of renal pelvis; E55.9 Vitamin D deficiency, unspecified
CPT/HCPCS: 36415; 71045; 74176; 80048; 80053; 81001; 83605; 83735; 84436; 84443; 85007; 85025; 87040; 87086; 87636; 93005; 99291; G0378; J0696

== ENCOUNTER 2023-04-26 10:51 | Emergency (ER) | payer BC, SELFPAY ==
[2023-04-26 10:51] VITALS: BP 151/76; PULSE 88; RESP 18; TEMP 36.6; O2SAT 98; BMI 40.1
--- NOTE | 2023-04-26 11:27 | EXP.UTC ---
Discharge Plan Disposition Patient Disposition: Home, Self-Care Condition: Good Prescriptions Prescriptions: No Action levothyroxine 100 mcg tablet 100 mcg PO DAILY Patient Comments: TAKE 1 TABLET ONCE A DAY IN THE MORNING ON AN EMPTY STOMACH hydroxyzine HCl 25 mg tablet 25 mg PO Q6HP PRN (Reason: Anxiety) Patient Comments: TAKE 1 TABLET EVERY 6 HOURS NEEDED FOR ANXIETY ergocalciferol (vitamin D2) [Vitamin D2] 1,250 mcg (50,000 unit) capsule 1,250 mcg PO WEEKLY Patient Comments: TAKE 1 CAPSULE 1 TIME EACH WEEK hydrocortisone 10 mg tablet 15 mg PO DAILY Patient Comments: TAKE 1 AND 1/2 TABLETS IN THE MORNING AND TAKE 1 TABLET AT 1 PM testosterone cypionate 200 mg/mL oil 200 mg IM .[id number] Patient Comments: INJECT 1 ML INTO A MUSCLE EVERY 2 WEEKS Referrals Follow up/Referrals: Roque Saleem [Primary Care Provider] - See instructions Activity Restrictions/Add. Instructions Additional Instructions/Restrictions: *Ibuprofen lisbet 6 hours with meal as needed for pain/inflammation if you can take it *Not additional anti-inflammatory like motrin, aleve, advil with the above amount of ibuprofen. You can still take Tylenol every 4 hours as needed if you need something else for pain *Ice 20 minutes every 2 hours for the first 48 hours after the initial injury followed by moist heat every 20 minutes 3-4 times a day to affected area Bright wrap may help with pain and discomfort *Keep this area active, no movement leads to more stiffness, However take it easy and avoid heavy lifting pushing or pulling *Follow up with you family doctor if no improvement for further treatment Clinical Impressions Clinical Impression: Strain of calf muscle Qualifiers: Encounter type: initial encounter Laterality: left Qualified Code(s): S86.812A - Strain of other muscle(s) and tendon(s) at lower leg level, left leg, initial encounter Instructions Patient Instructions: Calf Muscle Strain, DI for Calf Muscle Strain [place]charge ED Provider[place] Audrey Jama [facility] [place] Stated complaint: Lt leg pain, no accident Mode of Arrival: Ambulatory Source of Information: Patient Limitations: No Limitations Time Seen by Provider: 04/26/23 11:27 Description of Symptoms (Recalled from Triage Doc. by RN): Pt was getting on tractor tuesday and heard a pop. He has pain in left calf muscle. HEENT Symptoms (Recalled from RN notes): Yes Resp Symptoms (Recalled from RN notes): No Skin Symptoms (Recalled from RN notes): No MS Symptoms (Recalled from RN notes): No Functional Status (Recalled from RN notes): n/a History of Present Illness Provider Complaint: Patient states that he was getting off the tractor a couple days ago and felt and heard a pop in his left calf area States that since then he has been having pain with walking States that he has been putting ice on it but today it was still sore and thinks he may have strained it but unsure so he came in to get it checked Related Data Home Medications Medication Instructions Recorded Confirmed ergocalciferol (vitamin D2) 1,250 1,250 mcg PO WEEKLY Supplement 10/02/22 04/26/23 mcg (50,000 unit) capsule (Vitamin D2) 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 10/02/22 04/26/23 hydroxyzine HCl 25 mg tablet 25 mg PO Q6HP PRN Anxiety 10/02/22 04/26/23 levothyroxine 100 mcg tablet 100 mcg PO DAILY thyroid 10/02/22 04/26/23 testosterone cypionate 200 mg/mL 200 mg IM .[id number] 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 Medical History (Updated 04/26/23 @ 12:13 by Audrey Jama APRN) Immunotherapy Kidney malignancy Surgical History History of kidney removal Social History Smoking Status: Never smoker alcohol intake: never current occupational status: employed and retired Travel in the last 8 weeks: None ROS Obtained: Yes All systems reviewed & no additional complaints except as documented and Yes Systems reviewed as appropriate & no additional complaints except as documented Constitutional Constitutional: Reports system reviewed and no additional complaints, except as documented and Reports as per HPI ENT Ears, Nose, Mouth, and Throat: Reports system reviewed and no additional complaints, except as documented and Reports as per HPI Cardiovascular Cardiovascular: Reports system reviewed and no additional complaints, except as documented and Reports as per HPI Respiratory Respiratory: Reports system reviewed and no additional complaints, except as documented and Reports as per HPI Gastrointestinal Gastrointestingal: Reports system reviewed and no additional complaints, except as documented and as per HPI Musculoskeletal Musculoskeletal: Reports system reviewed and no additional complaints, except as documented and Reports as per HPI Comments: Pain in left calf area after feeling a pop on tuesday when getting off tractor Physical Exam General General appearance: alert and in no apparent distress Respiratory Respiratory exam: Present normal lung sounds bilaterally; Absent respiratory distress or wheezes Cardiovascular Cardiovascular exam: Present regular rate, normal rhythm and normal heart sounds Expanded Lower Extremity Exam Left: Leg image: 1. reports soreness/achy like pain since Tuesday after feeling a pop Tuesday when getting off tractor, no bruising no swelling reports pain at times with walking Lower leg exam: Present tenderness and swelling (mild in calf area); Absent abrasion, laceration, ecchymosis, deformity, dislocation, erythema or Homans' sign Ankle exam: Present normal inspection Neurological Exam Neurological exam: Present alert, oriented X3 and normal gait Medical Decision Making Branden Inquiry Pt receiving controlled substance: No Branden was queried for this patient: No Vital Signs: 04/26/23 10:51 Temperature 97.8 F Temperature Source Oral Pulse Rate [Right Radial] 88 Respiratory Rate 18 Blood Pressure [Right Arm] 151/76 H Blood Pressure Mean [Right Arm] 101 Blood Pressure Source [Right Arm] Automatic Cuff Blood Pressure Position [Right Arm] Sitting 02 Sat by Pulse Oximetry 98 Oxygen Delivery Method Room Air Orders (Tests/Meds): ORDERS Category Date Time Status CA venous doppler LE LT Stat Y 04/26/23 11:20 Ordered US Data US Images: Lower Extremity Preliminary Findings: Normal/NAD Findings Narrative: No DVT noted
[2023-04-26 12:16] VITALS: BP 151/76; PULSE 88; RESP 18; TEMP 36.6; O2SAT 98
== END 2023-04-26 12:16 | disposition home or self-care (01) ==
PROVIDERS: Emergency Provider Nurse Practitioner; PCP Family Medicine
DX: S86.812A Strain of other muscle(s) and tendon(s) at lower leg level, left leg, initial encounter (principal); M79.662 Pain in left lower leg; X50.9XXA Other and unspecified overexertion or strenuous movements or postures, initial encounter; Z85.528 Personal history of other malignant neoplasm of kidney
CPT/HCPCS: 93971; 99203; 99212; G0463